=== PATIENT | male | born 1970 | race African-American/Black ===

== ENCOUNTER 2022-12-11 04:59 | Emergency (ER) | payer OTHER ==
[2022-12-11] MEDS ORDERED: CYCLOBENZAPRINE 10 MG TAB ONE (06:04)
[2022-12-11] MEDS ORDERED: KETOROLAC 30 MG/ML INJ ONE (06:05)
[2022-12-11] MEDS ORDERED: HYDROCODONE/APAP 10/325 TAB ONE (06:05)
--- NOTE | 2022-12-11 07:16 | RAD REPORT ---
EXAM DESCRIPTION: CT - Spine Lumbar Wo Con - 12/11/2022 6:41 am CLINICAL HISTORY: Radiculopathy. PAIN COMPARISON: <Comparisons> TECHNIQUE: Axial noncontrast CT imaging of the lumbar spine was performed with coronal and sagittal re-formatted images. All CT scans are performed using dose optimization technique as appropriate and may include automated exposure control or mA/KV adjustment according to patient size. FINDINGS: No acute lumbar spine fracture seen. No aggressive marrow pattern or malalignment. Paraspinal tissues are normal in thickness. No paraspinal abscess or hematoma seen. There is significant degenerative change noted particularly at L3-4 where there is vacuum disc degene ration and large anterior/ posterior osteophyte formation. Moderate facet hypertrophy is also present lower lumbar spine. Posterior disc bulge also noted at L2-3 with facet hypertrophy. Central spinal c anal stenosis likely present L2-3 and L3-4. IMPRESSION: No acute lumbar spine finding. Spondylosis is notable mid lumbar levels, with probable canal stenosis at L2-3 and L3-4. MRI lumbar s pine would be suggested for further evaluation, which could be performed on a nonemergent basis.
--- NOTE | 2022-12-11 08:03 | ER ---
Nurse's Notes [facility] Name: Yamil Quinn Age: 52 yrs Sex: Male : 1970 Arrival Date: 12/11/2022 Time: 04:59 Bed 8 Private MD: Diagnosis: Lumbago with sciatica, right side;Lumbar spondylosis, degenerative disc disease, acute lower back pain with sciatica Presentation: 12/11 05:10 Coronavirus screen: Vaccine status: Patient reports receiving the 1st dose of the Covid kd3 vaccine. Ebola Screen: No symptoms or risks identified at this time. Initial Sepsis Screen: Does the patient meet any 2 criteria? No. Patient's initial sepsis screen is negative. Does the patient have a suspected source of infection? No. Patient's initial sepsis screen is negative. Risk Assessment: Do you want to hurt yourself or someone else? Patient reports no desire to harm self or others. Onset of symptoms was December 11, 2022. 05:10 Method Of Arrival: Ambulatory kd3 05:11 Chief complaint: Patient states: I've got right lower back pain that goes down into my kd3 right leg and my leg almost feels a little numb. The pain started on Saturday and it has gotten worse from there. I did a lot of driving on Saturday but im not sure if that hurt it. Also my right tow fingers are also numb. 05:11 Acuity: TONIO 3 kd3 Triage Assessment: 05:11 General: Appears uncomfortable, Behavior is calm, cooperative. Pain: Complains of pain kd3 in right low back Pain radiates to right leg. Musculoskeletal: Circulation, motion, and sensation intact. Historical: - Allergies: 05:10 No Known Allergies; kd3 - PMHx: 05:10 Hypertension; kd3 - Immunization history:: Adult Immunizations up to date. - Social history:: Smoking status: Patient denies any tobacco usage or history of. - Family history:: not pertinent. Screenin:08 [facility] ED Fall Risk Assessment (Adult) History of falling in the last 3 months, lg3 including since admission No falls in past 3 months (0 pts) Confusion or Disorientation No (0 pts) Intoxicated or Sedated No (0 pts) Impaired Gait No (0 pts) Mobility Assist Device Used No (0 pt) Altered Elimination No (0 pt) Score/Fall Risk Level 0 - 2 = Low Risk Oriented to surroundings, Maintained a safe environment. Abuse screen: Denies threats or abuse. Denies injuries from another. Nutritional screening: No deficits noted. Tuberculosis screening: No symptoms or risk factors identified. Assessment: 06:08 General: Appears in no apparent distress. comfortable, Behavior is calm, cooperative. lg3 Pain: Complains of pain in right low back Pain radiates to right leg. Neuro: No deficits noted. Salazar Agitation-Sedation Scale (RASS): 0 - Alert and Calm Level of Consciousness is awake, alert, obeys commands, Oriented to person, place, time, situation. Cardiovascular: No deficits noted. Denies chest pain, shortness of breath, Capillary refill < 3 seconds Clubbing of nail beds is absent JVD is absent Patient's skin is warm and dry. Respiratory: No deficits noted. Airway is patent Respiratory effort is even, unlabored, Respiratory pattern is regular, symmetrical. GI: No deficits noted. No signs and/or symptoms were reported involving the gastrointestinal system. Abdomen is round non-distended, obese. : No deficits noted. No signs and/or symptoms were reported regarding the genitourinary system. EENT: No deficits noted. No signs and/or symptoms were reported regarding the EENT system. Derm: No deficits noted. No signs and/or symptoms reported regarding the dermatologic system. Skin is intact, is healthy with good turgor, Skin is dry, Skin is normal, Skin temperature is warm. Musculoskeletal: Reports pain in right leg and right low back. 08:13 General: Appears in no apparent distress. comfortable, Behavior is calm, cooperative. ss Neuro: Level of Consciousness is awake, alert, obeys commands, Oriented to person, place, time, situation. Respiratory: Airway is patent Respiratory effort is even, unlabored, Respiratory pattern is regular, symmetrical. Derm: Skin is pink, warm \T\ dry. normal. Vital Signs: 05:09 Pulse 71; Resp 19; Temp 97.9(O); Pulse Ox 98% on R/A; Weight 163.29 kg; Height 6 ft. 1 kd3 in. ; 05:11 BP 149 / 96; kd3 05:09 Body Mass Index 47.50 (163.29 kg, 185.42 cm) kd3 ED Course: 05:04 Patient arrived in ED. ag3 05:11 Arm band placed on right wrist. kd3 05:13 Triage completed. kd3 05:45 Salvador Cintron MD is Attending Physician. sp4 06:07 Shahnaz Macias, RN is Primary Nurse. lg3 06:08 Patient has correct armband on for positive identification. Placed in gown. Bed in low lg3 position. Call light in reach. Side rails up X 1. Client placed on continuous cardiac and pulse oximetry monitoring. NIBP monitoring applied. Door closed. Noise minimized. Warm blanket given. Family accompanied patient. 06:42 CT Lumbar Spine Wo Con In Process Unspecified. EDMS 08:13 No provider procedures requiring assistance completed. Patient did not have IV access ss during this emergency room visit. Administered Medications: 06:07 Not Given (Other Intervention Used): Ketorolac IVP 60 mg IVP once lg3 06:07 Drug: Gallatin PO 10 mg-325 mg 1 tabs Route: PO; lg3 06:46 Follow up: Response: No adverse reaction lg3 06:07 Drug: Cyclobenzaprine PO 10 mg Route: PO; lg3 06:46 Follow up: Response: No adverse reaction lg3 06:08 Drug: Ketorolac IM 60 mg Route: IM; Site: right deltoid; lg3 06:46 Follow up: Response: No adverse reaction lg3 Medication: 08:13 VIS not applicable for this client. ss Outcome: 08:03 Discharge ordered by . sp4 08:13 Discharged to home ambulatory, with family. ss 08:13 Condition: good 08:13 Discharge instructions given to patient, family, Instructed on discharge instructions, follow up and referral plans. no driving heavy equipment, Demonstrated understanding of instructions, follow-up care, medications, Prescriptions given X 3. 08:13 Patient left the ED. ss Signatures: Dispatcher [employer] EDUT Disha Rodarte RN RN Leilani Maradiaga 3 Shahnaz Macias, JEFFREY MURPHY [facility] Carley Rizo RN RN 3 Salvador Cintron MD MD sp4
--- NOTE | 2022-12-11 08:04 | EDPHYS ---
Physician Documentation [facility] Name: Yamil Quinn Age: 52 yrs Sex: Male : 1970 Arrival Date: 12/11/2022 Time: 04:59 Bed 8 Private MD: ED Physician Salvador Cintron HPI: 12/11 05:45 This 52 yrs old Black Male presents to ER via Ambulatory with complaints of Back Pain. sp4 05:58 52-year-old male with history of hypertension presents with acute right lower back pain sp4 with radiation down the right leg traveling all the way down to the right. This is started 5 days ago and intensified. Patient reports he can walk without a problem but he is limited he denied any weakness in his leg. Denied numbness, denied incontinence of bowel and bladder. Historical: - Allergies: 05:10 No Known Allergies; kd3 - PMHx: 05:10 Hypertension; kd3 - Immunization history:: Adult Immunizations up to date. - Social history:: Smoking status: Patient denies any tobacco usage or history of. - Family history:: not pertinent. ROS: 05:58 Constitutional: Negative for fever, chills, and weight loss, Eyes: Negative for injury, sp4 pain, redness, and discharge, ENT: Negative for injury, pain, and discharge, Neck: Negative for injury, pain, and swelling, Cardiovascular: Negative for chest pain, palpitations, and edema, Respiratory: Negative for shortness of breath, cough, wheezing, and pleuritic chest pain, Abdomen/GI: Negative for abdominal pain, nausea, vomiting, diarrhea, and constipation, Back: Negative for injury positive right lower back pain with radiation down the right leg : Negative for injury, bleeding, discharge, and swelling, MS/Extremity: Negative for injury and deformity, positive pain radiation down the right leg Skin: Negative for injury, rash, and discoloration, Neuro: Negative for headache, weakness, numbness, tingling, and seizure, Psych: Negative for depression, anxiety, Allergy/Immunology: Negative for hives, rash, and allergies Endocrine: Negative for neck swelling, polydipsia, polyuria, polyphagia, and weight changes Hematologic/Lymphatic: Negative for swollen nodes, abnormal bleeding, and unusual bruising Exam: 05:58 Constitutional: This is a well developed, well nourished patient who is awake, alert, sp4 and in no acute distress. Head/Face: Normocephalic, atraumatic. Eyes: Pupils equal round and reactive to light, extra-ocular motions intact. Lids and lashes normal. Conjunctiva and sclera are not injected. Cornea within normal limits. Periorbital areas with no swelling, redness, or edema. ENT: Nares patent. No nasal discharge, no septal abnormalities noted. Tympanic membranes are normal and external auditory canals are clear. Oropharynx with no redness, swelling, or masses, exudates, or evidence of obstruction, uvula midline. Mucous membranes moist. Neck: Trachea midline, no thyromegaly or masses palpated, and no cervical lymphadenopathy. Supple, full range of motion without nuchal rigidity, or vertebral point tenderness. No Meningismus. Chest/axilla: Normal chest wall appearance and motion. Nontender with no deformity. No lesions are appreciated. Cardiovascular: Regular rate and rhythm with a normal S1 and S2. No gallops, murmurs, or rubs. Normal PMI, no JVD. No pulse deficits. Respiratory: Lungs have equal breath sounds bilaterally, clear to auscultation and percussion. No rales, rhonchi or wheezes noted. No increased work of breathing, no retractions or nasal flaring. Abdomen/GI: Soft, non-tender, with normal bowel sounds. No distension or tympany. No guarding or rebound. No evidence of tenderness throughout. Back: No spinal tenderness. No costovertebral tenderness. Skin: Warm, dry with normal turgor. Normal color with no rashes, no lesions, and no evidence of cellulitis. MS/ Extremity: Pulses equal, no cyanosis. Neurovascular intact. Full, normal range of motion. Neuro: Awake and alert, GCS 15, oriented to person, place, time, and situation. Cranial nerves II-XII grossly intact. Motor strength 5/5 in all extremities. Sensory grossly intact. Psych: Awake, alert, with orientation to person, place and time. Behavior, mood, and affect are within normal limits 05:58 Neuro: Normal gait, normal bilateral lower extremity strength, normal sensation, normal reflexes. Vital Signs: 05:09 Pulse 71; Resp 19; Temp 97.9(O); Pulse Ox 98% on R/A; Weight 163.29 kg; Height 6 ft. 1 kd3 in. ; 05:11 BP 149 / 96; kd3 05:09 Body Mass Index 47.50 (163.29 kg, 185.42 cm) kd3 MDM: 05:56 Patient medically screened. sp4 07:59 Differential diagnosis: arthritis, Myeloma Neoplasm Obesity ruptured disc, Scoliosis. sp4 Data reviewed: vital signs, nurses notes, radiologic studies, CT scan. ED course: CT revealed L2-L3 spondylosis radiologist advise nonemergent L-spine MRI. Patient has no paralysis, normal neurologic exam, normal gait. Patient is stable for discharge home with as needed pain medication. . ED course: Will advise to see siding applicator in case pain is persistent beyond 2 weeks for nonemergent L-spine MRI. 12/11 05:55 Order name: CT Lumbar Spine Wo Con; Complete Time: 07:49 sp4 Administered Medications: 06:07 Not Given (Other Intervention Used): Ketorolac IVP 60 mg IVP once lg3 06:07 Drug: Athena PO 10 mg-325 mg 1 tabs Route: PO; lg3 06:46 Follow up: Response: No adverse reaction lg3 06:07 Drug: Cyclobenzaprine PO 10 mg Route: PO; lg3 06:46 Follow up: Response: No adverse reaction lg3 06:08 Drug: Ketorolac IM 60 mg Route: IM; Site: right deltoid; lg3 06:46 Follow up: Response: No adverse reaction lg3 Disposition Summary: 12/11/22 08:03 Discharge Ordered Location: Home sp4 Problem: new sp4 Symptoms: have improved sp4 Condition: Stable sp4 Diagnosis - Lumbago with sciatica, right side sp4 - Lumbar spondylosis, degenerative disc disease, acute lower back pain with sciatica sp4 Followup: sp4 - With: Private Physician - When: 10 - 14 days - Reason: Recheck today's complaints Discharge Instructions: - Discharge Summary Sheet sp4 - Sciatica sp4 Forms: - Medication Reconciliation Form sp4 - Prescription Opioid Use sp4 Prescriptions: - naproxen sodium 500 mg Oral Tablet, ER Multiphase 24 hr - take 1 tablet by ORAL route every 12 hours PRN pain; 30 tablet; Refills: 0, sp4 Product Selection Permitted - Cyclobenzaprine 10 mg Oral Tablet - take 1 tablet by ORAL route every 8 hours As needed; 30 tablet; Refills: 0, sp4 Product Selection Permitted - Tramadol 50 mg Oral Tablet - take 1 tablet by ORAL route every 8 hours as needed; 30 tablet; Refills: 0, sp4 Product Selection Permitted Signatures: Dispatcher [employer] Shahnaz Valdez, RN RN lg3 Carley Rizo RN RN kd3 Salvador Cintron MD MD sp4
[2022-12-11 08:18] VITALS: TEMP 97.9; O2SAT 98
[2022-12-11 08:20] VITALS: BP 149/96
== END 2022-12-11 08:13 | disposition home or self-care (01) ==
LOC: ER 04:59
DX: M54.41 Lumbago with sciatica, right side (principal); M47.896 Other spondylosis, lumbar region; M51.36 Other intervertebral disc degeneration, lumbar region; I10 Essential (primary) hypertension
CPT/HCPCS: 72131; 96372; 99284